=== PATIENT | male | born 1950 | race Caucasian/White ===

== ENCOUNTER 2023-09-05 12:48 | Emergency (ER) | payer MEDICARE, OTHER, SELFPAY ==
[2023-09-05 13:13] VITALS: BP 171/97
--- NOTE | 2023-09-05 14:23 | ED.GENMED ---
History of Present Illness
General
Chief Complaint: Cold/Flu/URI Symptoms
Time Seen by Provider: 09/05/23 14:06
Travel History
Have you had any contact with someone who has COVID-19?: No
Do you have any symptoms of coronavirus? Fever > 100 degrees, chills, cough, shortness of breath, sore throat, loss of taste or smell, muscle aches, or headache?: No
History of Present Illness
History of Present Illness:
73-year-old male with history of hypertension and hyperlipidemia presents to the emergency department for evaluation of sore throat. He took a positive home COVID test today. He is primarily here in the ER as his is also a patient. Denies
any dyspnea or chest pain.
Review of Systems
Review of Systems
Allergies reviewed?: Yes
All Other Systems: ROS reviewed and negative except as documented in HPI and ROS
Phy Exam
Physical Exam
Physical Exam:
GEN: Well appearing, NAD, WDWN
HEENT: Oral mucosa moist, no scleral icterus
Cardiac: Regular rate
Lung: No respiratory distress, no tachypnea, lungs clear to auscultation bilaterally
MSK: No gross deformity or injuries
Skin: Good color, no pallor or jaundice, no rashes
Neuro: AO x3, moves all extremities freely
Psych: Calm, cooperative
Course
Vital Signs
Initial and Last Documented VS:
Initial Vital Signs
Temp Pulse Resp BP Pulse Ox
99.6 F 55 18 171/97 97
09/05/23 13:13 09/05/23 13:13 09/05/23 13:13 09/05/23 13:13 09/05/23 13:13
Last Documented Vital Signs
Temp Pulse Resp BP Pulse Ox
99.6 F 55 18 171/97 97
09/05/23 13:13 09/05/23 13:13 09/05/23 13:13 09/05/23 13:13 09/05/23 13:13
MDM/Problems Addressed
MDM/Problems Addressed:
Patient is clinically well, no significant high risk criteria other than age that would warrant antiviral use, at this time I discussed the options for treatment with the patient and he opted to decline Paxlovid which is reasonable. Discussed
further supportive care and return parameters
*Critical Care Note
Total Time (30-74mins, 75-104mins- exclusive of procedures): Not Applicable
ED Attending Note
-
Portions of this chart may have been created with voice recognition software.� Occasional wrong word or��sound alike� substitutions may have occurred due to the inherent limitations of voice recognition software.
Discharge Plan
Departure
Patient Disposition: Home (Routine Discharge)
Date of Disposition: 09/05/23
Time of Disposition: 14:32
Patient with high blood pressure during this ER visit?: No
Discharge Problem:
COVID-19
Instructions: COVID-19 ED
Discharge Date and Time
Print Language: WELSH
== END 2023-09-05 15:08 | disposition home or self-care (01) ==
LOC: EMR 12:48
PROVIDERS: EMERGENCY PHYSICIAN Emergency Medicine; FAMILY PHYSICIAN Nurse Practitioner Family
DX: U07.1 COVID-19 (principal)
CPT/HCPCS: 99281

== ENCOUNTER → 2024-01-18 09:25 | Outpatient (REF) | payer MEDICARE, OTHER, SELFPAY ==
[2024-01-18 12:25] LABS: % Basophils 0.5 % (0-2); % Eosinophils 5.5 % (0-6); % Immature Granulocytes 0.5 % (0-0.5); % Lymphocytes 36.5 % (20.5-51.1); % Monocytes 10.3 % (1.7-9.3); % Neutrophils 46.7 % (42.2-75.2); Absolute Eosinophils 0.3 10^3/uL (0-0.7); Absolute Lymphocytes 2.1 10^3/uL (1.2-3.4); Absolute Monocytes 0.6 10^3/uL (0.1-0.6); Absolute Neutrophils 2.6 10^3/uL (1.4-6.5); Hematocrit 40.1 % (39.0-52.0); Hemoglobin 14.8 g/dL (13.0-18.0); Mean Corp Hgb Conc. 36.9 g/dL (33.0-37.0); Mean Corpuscular Hgb 32.7 pg (27.0-31.0); Mean Corpuscular Volume 88.5 fL (80.0-94.0); Mean Platelet Volume 9.1 fL (7.4-10.4); Nucleated Red Blood Cells % 0 % (-); Platelet Count 123 10^3/uL (130-400); Red Blood Cell Count 4.53 10^6/uL (4.70-6.10); Red Cell Dist. Width 12.8 % (11.5-14.5); White Blood Cell Count 5.6 10^3/uL (4.8-10.8)
[2024-01-18 12:34] LABS: Urine Albumin Trace (Neg - Trace); Urine Bilirubin Negative (Negative); Urine Character Clear (Clear); Urine Color Yellow; Urine Glucose Negative (Negative); Urine Ketone Negative (Negative); Urine Leukocyte Negative (Negative); Urine Nitrite Negative (Negative); Urine Occult Blood Negative (Negative); Urine Specific Gravity 1.025 (<1.030); Urine Urobilinogen Negative (Neg - 1+)
[2024-01-18 12:41] LABS: ALT (SGPT) 19 U/L (0-50); AST (SGOT) 26 U/L (17-59); Albumin 4.3 g/dl (3.5-5.0); Alkaline Phosphatase 67 U/L (38-126); Blood Urea Nitrogen 24 mg/dl (9-20); Calcium 9.7 mg/dl (8.4-10.2); Carbon Dioxide 23 mmol/L (22-30); Chloride 107 mmol/L (98-107); Glucose 117 mg/dl (70-99); HDL Cholesterol 29 mg/dl; LDL Cholesterol, Calculated 64 mg/dl; Potassium 3.8 mmol/L (3.5-5.1); Sodium 139 mmol/L (135-145); Total Bilirubin 1.2 mg/dl (0.2-1.3); Total Cholesterol 106 mg/dl (50-199); Total Protein 6.7 g/dl (6.3-8.2); Triglyceride 69 mg/dl (10-149); Very Low Density Lipoprotein 13 mg/dl (0-30); eGFR > 60.00
== END ==
LOC: HWLAB 09:25
PROVIDERS: ATTENDING PHYSICIAN Nurse Practitioner Family
DX: Z13.220 Encounter for screening for lipoid disorders (principal); Z13.0 Encounter for screening for diseases of the blood and blood-forming organs and certain disorders involving the immune mechanism; Z13.1 Encounter for screening for diabetes mellitus; Z13.89 Encounter for screening for other disorder; E78.00 Pure hypercholesterolemia, unspecified
CPT/HCPCS: 36415; 80053; 80061; 81003; 85025

== ENCOUNTER → 2025-05-15 10:26 | Outpatient (REF) | payer MEDICARE, OTHER, SELFPAY ==
[2025-05-15 11:04] LABS: Hematocrit 38.4 % (39.0-52.0); Hemoglobin 14.1 g/dL (13.0-18.0); Mean Corp Hgb Conc. 36.7 g/dL (33.0-37.0); Mean Corpuscular Volume 90.1 fL (80.0-94.0); Nucleated Red Blood Cells % 0 % (-); Platelet Count 134 10^3/uL (130-400); Red Cell Dist. Width 12.8 % (11.5-14.5)
[2025-05-15 11:31] LABS: Urine Character Clear (Clear)
[2025-05-15 11:43] LABS: Glycohemoglobin (HgbA1c) 5.1 % (4.0-5.9)
[2025-05-15 13:29] LABS: ALT (SGPT) 30 U/L (0-50); AST (SGOT) 27 U/L (17-59); Albumin 4.6 g/dl (3.5-5.0); Alkaline Phosphatase 61 U/L (38-126); Blood Urea Nitrogen 22 mg/dl (9-20); Calcium 9.6 mg/dl (8.4-10.2); Carbon Dioxide 27 mmol/L (22-30); Chloride 105 mmol/L (98-107); Glucose 108 mg/dl (70-99); HDL Cholesterol 28 mg/dl; LDL Cholesterol, Calculated 94 mg/dl; Potassium 3.7 mmol/L (3.5-5.1); Sodium 138 mmol/L (135-145); Total Protein 7.4 g/dl (6.3-8.2); Very Low Density Lipoprotein 20 mg/dl (0-30); eGFR > 60.00
[2025-05-15 16:29] LABS: Vitamin D, 25-OH*** 72.5 ng/mL (30-80)
[2025-05-15 16:42] LABS: TSH 1.73 uIU/ml (0.47-4.68)
[2025-05-15 16:46] LABS: PSA, Total - Screen 1.79 ng/ml (0.0-4.0)
== END ==
LOC: REG 10:26
PROVIDERS: ATTENDING PHYSICIAN Family Medicine
DX: I10 Essential (primary) hypertension (principal); R73.01 Impaired fasting glucose; E78.2 Mixed hyperlipidemia; Z00.00 Encounter for general adult medical examination without abnormal findings; Z12.5 Encounter for screening for malignant neoplasm of prostate; E55.9 Vitamin D deficiency, unspecified
CPT/HCPCS: 36415; 80053; 80061; 81003; 82306; 83036; 84443; 85025; G0103